=== PATIENT | female | born 1965 | race Caucasian/White ===

== ENCOUNTER 2019-09-14 22:11 | Emergency (ER) | payer OTHER ==
[~2019-09-14] VITALS: Ht 167.6 cm; Wt 54.4 kg
[2019-09-14 22:20] VITALS: BP_SYST 109
--- NOTE | 2019-09-14 22:24 | NUR ---
Pt c/o Left foot pain s/p couch breaking and falling on foot. Pt states that she was attempting to take a group photo with 13 girls on the couch. +swelling to dorsum of left foot, pain with PROM.
--- NOTE | 2019-09-14 22:24 | NUR ---
Patient to ER bed 05 to gown for evaluation. Side rails up. Report given to CATHERINE Walker
--- NOTE | 2019-09-14 22:34 | NUR ---
Dr. Nichole at bedside.
--- NOTE | 2019-09-14 23:00 | NUR ---
Richard wrap applied to Left foot, non-constrictive, cap refil < 3 sec to nail beds. Pt fitted with crutches.
[2019-09-14 23:15] VITALS: BP_SYST 126
--- NOTE | 2019-09-14 23:15 | NUR ---
Patient given written and verbal discharge instructions and verbalizes understanding. ER MD discussed with patient the results and treatment provided. Patient in stable condition. ID arm band removed. No Rx given. Patient educated on pain management and to follow up with PMD. Pain Scale 0/10. Opportunity for questions provided and answered. Medication side effect fact sheet provided.
== END 2019-09-14 23:15 | disposition home or self-care (01) ==
LOC: SED 22:11
DX: S90.32XA Contusion of left foot, initial encounter (principal); F17.210 Nicotine dependence, cigarettes, uncomplicated; Z71.6 Tobacco abuse counseling; W20.8XXA Other cause of strike by thrown, projected or falling object, initial encounter; Y93.89 Activity, other specified; Y92.89 Other specified places as the place of occurrence of the external cause; Y99.8 Other external cause status
CPT/HCPCS: 99283